=== PATIENT | male | born 1965 | race African-American/Black ===

== ENCOUNTER 2020-05-24 05:58 | Day surgery (SDC) | payer BC, OTHER ==
[2020-05-02 09:28] VITALS: BMI 29.2
[2020-05-24] MEDS ORDERED: ROPIVACAINE HCL 0.5% 30ML VIAL ONE (06:11)
[2020-05-24] MEDS ORDERED: MIDAZOLAM HCL 2 MG/2 ML SINGLE DOSE VIAL ONE (06:11)
[2020-05-24] MEDS ORDERED: DEXAMETHASONE SOD PHOSPHATE 10 MG/1 ML VIAL ONE (07:09)
[2020-05-24] MEDS ORDERED: EPINEPHrine 1:1,000 1 MG/1 ML - 30ML VIAL (INJECTION) ONE (07:18)
[2020-05-24] MEDS ORDERED: PROPOFOL 20 ML ONE (07:25)
[2020-05-24] MEDS ORDERED: ONDANSETRON 4 MG/2 ML VIAL ONE ×2 (07:55→08:58)
[2020-05-24] MEDS ORDERED: DEXAMETHASONE SOD PHOSPHATE 4 MG/1 ML VIAL ONE (07:55)
[2020-05-24] MEDS ORDERED: ceFAZolin SODIUM 1 GM VIAL ONE (08:15)
[2020-05-24 09:55] VITALS: PULSE 88
[2020-05-24] MEDS ORDERED: oxyCODONE HCL 5 MG TABLET PO PRN (10:42)
[2020-05-24] MEDS ORDERED: ONDANSETRON 4 MG/2 ML VIAL IVPUSH PRN (10:42)
[2020-05-24] MEDS ORDERED: LACTATED RINGERS SOLUTION 1,000 ML IV SCH (10:45)
[2020-05-24 11:14] VITALS: TEMP 97.9
[2020-05-24 11:17] VITALS: BP 127/86
== END 2020-05-24 11:00 | disposition home or self-care (01) ==
LOC: FASU 05:58
PROVIDERS: ATTEND Orthopaedic Surgery
PROC: 0RNK4ZZ Release Left Shoulder Joint, Percutaneous Endoscopic Approach (ICD-10-PCS; 2020-05-24)
PROC: 0PBB4ZZ Excision of Left Clavicle, Percutaneous Endoscopic Approach (ICD-10-PCS; 2020-05-24)
PROC: 0RNK4ZZ Release Left Shoulder Joint, Percutaneous Endoscopic Approach (ICD-10-PCS; 2020-05-24)
PROC: 0RQK4ZZ Repair Left Shoulder Joint, Percutaneous Endoscopic Approach (ICD-10-PCS; principal; 2020-05-24 08:18)
DX: M25.312 Other instability, left shoulder (principal); M75.02 Adhesive capsulitis of left shoulder; M75.42 Impingement syndrome of left shoulder; S43.432A Superior glenoid labrum lesion of left shoulder, initial encounter; X58.XXXA Exposure to other specified factors, initial encounter; Y93.9 Activity, unspecified; Y92.9 Unspecified place or not applicable; Y99.9 Unspecified external cause status; E11.9 Type 2 diabetes mellitus without complications
CPT/HCPCS: 82962; 88304-TC; 94760; J1100